=== PATIENT | female | born 1990 | race Caucasian/White ===

== ENCOUNTER 2016-03-24 07:38 | Emergency (ER) | payer OTHER ==
[2016-03-24] MEDS ORDERED: KETOROLAC 30 MG/ML VIAL ONE (08:10)
[2016-03-24] MEDS ORDERED: SODIUM CHLORIDE 0.9% 1,000 ML ONE (08:10)
== END 2016-03-24 10:03 | disposition home or self-care (01) ==
LOC: EEVIPCON 07:38 → ER 07:38
DX: N30.00 Acute cystitis without hematuria (principal); N94.4 Primary dysmenorrhea; Z87.891 Personal history of nicotine dependence; F15.21 Other stimulant dependence, in remission
CPT/HCPCS: 36415; 80053; 81001; 83690; 84703; 85025; 87077; 87088; 87186; 87491; 87591; 87800; 96361; 96374